=== PATIENT | female | born 1945 | race Caucasian/White ===

== ENCOUNTER 2022-09-09 18:24 | Emergency (ER) | payer MEDICARE, SELFPAY ==
[2022-09-09 18:34] VITALS: BP 169/90; PULSE 62; RESP 14; TEMP 36.4; O2SAT 99; BMI 20.5
[2022-09-09 18:43] LABS: Glucose Point of Care 86 mg/dL (70-110)
--- NOTE | 2022-09-09 18:45 | ECG_ITS ---
[facility] Test Date: 2022-09-09 Pat Name: Sherice Hassan Department: Room: Gender: Female [employer]er: : 1945 Requested By: Andrea Mendosa Order Number: [id number] Reading MD: CATHLEEN LUDWIG Measurements Intervals [place] Rate: 59 P: 18 NH: 143 QRS: -54 QRSD: 97 T: 47 QT: 429 QTc: 427 Interpretive Statements SINUS BRADYCARDIA LEFT AXIS DEVIATION [QRS AXIS < -30] LOW QRS VOLTAGE IN PRECORDIAL LEADS [QRS DEFLECTION < 1.0 mV IN CHEST LEADS] PATTERN CONSISTENT WITH PULMONARY DISEASE No previous ECG available for comparison Electronically Signed On 09-10-2022 23:37:23 CDT by CATHLEEN LUDWIG [id number]
--- NOTE | 2022-09-09 18:45 | CTR_ITS ---
PROCEDURE INFORMATION: Exam: CT Head Without Contrast Exam date and time: 09/09/2022 7:06 PM Age: 76 years old Clinical indication: Visual disturbance; Additional info: Left eye blurred vision TECHNIQUE: Imaging protocol: Computed tomography of the head without contrast. Radiation optimization: All CT scans at this facility use at least one of these dose optimization techniques: automated exposure control; mA and/or kV adjustment per patient size (includes targeted exams where dose is matched to clinical indication); or iterative reconstruction. REPORTING DATA: Count of CT and Cardiac NM exams in prior 12 months: This patient has received 0 known CTs and 0 known cardiac nuclear medicine studies in the 12 months prior to the current study. COMPARISON: No relevant prior studies available. RADIATION DOSE METRICS: Total DLP (mGy-cm): 1014.98 FINDINGS: Brain: Normal. No hemorrhage. Unremarkable white matter. No mass effect. Cerebral ventricles: No ventriculomegaly. Paranasal sinuses: Visualized sinuses are unremarkable. No fluid levels. Mastoid air cells: Visualized mastoid air cells are well aerated. Bones/joints: Unremarkable. No acute fracture. Soft tissues: Unremarkable. CT/CT head wo con* [id number] IMPRESSION: No acute intracranial abnormality.
--- NOTE | 2022-09-09 18:49 | PC.NURSE ---
REPORT GIVEN TO MANUELA RN ASSUMED CARE.
[2022-09-09 18:54] LABS: Basophils # 0.1 10^3/uL (0.0-0.1); Basophils % 0.9 %; Eosinophils # 0.2 10^3/uL (0.0-0.8); Eosinophils % 2.7 %; Hematocrit 43.6 % (37.0-47.0); Hemoglobin 13.9 g/dL (11.5-15.3); Lymphocytes # 1.8 10^3/uL (0.8-4.8); Lymphocytes % 27.5 %; Mean Corpuscular HGB Conc 31.9 g/dL (30.0-36.0); Mean Corpuscular Hemoglobin 30.2 pg (28.0-34.0); Mean Corpuscular Volume 94.6 fl (81-99); Mean Platelet Volume 9.6 fL (7.4-10.4); Monocytes # 0.6 10^3/uL (0.2-0.9); Monocytes % 8.9 %; Neutrophils # 3.95 10^3/uL (1.8-7.7); Neutrophils % 59.8 %; Nucleated Red Blood Cells % 0 %; Platelet Count 231 10^3/cmm (130-400); Red Blood Count 4.61 10^6/uL (4.1-5.3); Red Cell Distribution Width 12.8 % (12.1-15.1); White Blood Count 6.6 10^3/uL (4.0-10.0)
[2022-09-09 19:05] LABS: INR 0.95 (0.8-1.2)
[2022-09-09 19:06] LABS: Partial Thromboplastin Time 29.4 SECONDS (23.9-36.7)
[2022-09-09 19:11] LABS: Alanine Aminotransferase 10 U/L (0-33); Albumin Level 4.4 g/dL (3.5-5.2); Alkaline Phosphatase 66 U/L (35-105); Anion Gap 12.7 (5-19); Aspartate Amino Transferase 17 U/L (0-32); Blood Urea Nitrogen 13 mg/dL (8-23); Calcium 9.2 mg/dL (8.5-10.5); Carbon Dioxide 28 mmol/L (22-29); Chloride 104 mmol/L (98-107); Creatinine Clr Calc Pharmacy 52.3651; Globulin 3.1 g/dL (1.3-4.6); Glucose 92 mg/dL (65-115); Osmolality Calculated 292 mOsm/kg (285-295); Potassium 3.7 mmol/L (3.5-5.1); Sodium 141 mmol/L (136-145); Total Bilirubin 0.3 mg/dL (0.15-1.2); Total Protein 7.5 g/dL (6.6-8.7)
[2022-09-09 20:20] VITALS: BP 131/75; PULSE 60; RESP 16; O2SAT 99
[2022-09-09 20:28] VITALS: BP 136/84; PULSE 56; RESP 16; O2SAT 99
--- NOTE | 2022-09-09 21:58 | W.ED.NEUROSD ---
HPI - Neuro Symptoms/Deficit General: Chief Complaint: Neuro Symptoms/Deficit Stated Complaint: blurred vision Time Seen by Provider: 09/09/22 18:36 History of Present Illness: 76-year-old female with no significant past medical history other than migraines infrequently. She reports a graying out of her vision, essentially of her left eye for about 10 to 15 minutes earlier in the evening. The symptoms resolved spontaneously, and she is asymptomatic. There was no eye pain. Her right eye was fine during the episode. This was only her left eye, and it was a graying out of her entire visual field. No speech or language problems, no weakness, no paresthesias. No dizziness. She has had symptoms of diplopia that is transient prior to this in the more distant past, but not recently. She has not had these specific symptoms to the left eye before. Location: other History of same: No Severity: moderate Quality: other Relieving factors: time Exacerbating factors: none Associated symptoms: Deny chest pain, cough, diaphoresis, fevers/chills, headache(s), nausea, syncope, tingling, vertigo, vomiting or weakness Review of Systems Const: Denies: diaphoresis Eyes: Reports: change in vision and blind spots (Now resolved) Card: Denies: chest pain or syncope GI: Denies: nausea or vomiting Neuro: Denies: headache(s) or vertigo NIH stroke score NIHSS: Level Of Consciousness - 1a: 0 Level Of Consciousness Questions - 1b: Both Correct Level Of Consciousness Commands - 1c: Both Correct Best Gaze - 2: Normal Visual Kim - 3: No Visual Loss Facial Palsy - 4: Normal Motor Arm Right - 5: No Drift Motor Arm Left - 5: No Drift Motor Leg Right - 6: No Drift Motor Leg Left - 6: No Drift Limb Ataxia - 7: Absent Sensory - 8: Normal Best Language - 9: No Aphasia Dysarthia - 10: Normal Extinction And Inattention - 11: 0 Score: Total Score: 0 Physical Exam Const: COMMON NORMALS: no acute distress GENERAL APPEARANCE: cooperative; not ill appearing and not frail appearing HENMT: COMMON NORMALS: normocephalic, atraumatic and Normal external nose present HEAD & SCALP: normocephalic and atraumatic FACE & SINUS: normal facial exam and face symmetric NOSE: Normal external nose present Eye: COMMON NORMALS: Equal, round and reactive pupils present, EOMs intact bilaterally, conjunctivae normal and no papilledema GENERAL EYE: appearance normal, both eyes and all related structures and normal light reflex VISUAL ACUITY: Yes acuity normal VISUAL KIM: No peripheral vision loss and No central vision loss ALIGNMENT: Yes alignment normal EYELID: eyelids normal CONJUNCTIVA: Yes conjunctivae normal PUPIL: Yes Equal, round and reactive pupils present DIRECT OPHTHALMOSCOPY: Yes normal light reflex, Yes no papilledema, Yes photophobia and No retinal abnormality Neck/C-Spine: GENERAL: Yes trachea midline Chest: CHEST: Yes Symmetrical chest wall rise Resp: COMMON NORMALS: normal respiratory effort, No retractions, No use of accessory muscles and clear to auscultation bilaterally AUSCULTATION: clear to auscultation bilaterally Cardio: COMMON NORMALS: regular rate and regular rhythm RATE: regular rate RHYTHM: regular rhythm GI: COMMON NORMALS: Normal to inspection, nondistended, normoactive bowel sounds present Extremity: COMMON NORMALS: no pedal edema Neuro: MOUNA COMA SCALE: document GCS findings Mouna coma scale eye opening: Spontaneous Aiken coma scale verbal response: Orientated Mouna coma scale motor response: Obey commands Mouna coma scale total score: 15 SENSORY EXAM: Yes extremities (intact) Psych: COMMON NORMALS: speech normal SPEECH: Yes normal speech Skin: COMMON NORMALS: no rashes or lesions noted GENERAL SKIN EXAM: no rashes or lesions noted Course Vital Signs: Vital signs: Vital Signs Temperature 97.5 F L 09/09/22 18:34 Pulse Rate 56 L 09/09/22 20:28 Respiratory Rate 16 09/09/22 20:28 Blood Pressure 136/84 09/09/22 20:28 Pulse Oximetry 99 09/09/22 20:28 Oxygen Delivery Me thod 09/09/22 20:20 MDM - Neuro Symptoms/Deficit Medical Decision Making Symptoms are resolved. Her neurological exam is normal. I do not see significant findings on funduscopic exam. Laboratory is not remarkable. Head CT is negative. She will be allowed discharge with outpatient follow-up with ophthalmology. She notes return for return symptoms Lab Data 09/09/22 18:47 09/09/22 18:[address] 09/09/22 18:45 IMPRESSION: No acute intracranial abnormality. Laboratory Results WBC 6.6 10^3/uL (4.0-10.0) 09/09/22 18:47 RBC 4.61 10^6/uL (4.1-5.3) 09/09/22 18:47 Hgb 13.9 g/dL (11.5-15.3) 09/09/22 18:47 Hct 43.6 % (37.0-47.0) 09/09/22 18:47 MCV 94.6 fl (81-99) 09/09/22 18:47 MCH 30.2 pg (28.0-34.0) 09/09/22 18:47 MCHC 31.9 g/dL (30.0-36.0) 09/09/22 18:47 RDW 12.8 % (12.1-15.1) 09/09/22 18:47 Plt Count 231 10^3/cmm (130-400) 09/09/22 18:47 MPV 9.6 fL (7.4-10.4) 09/09/22 18:47 Neut % (Auto) 59.8 % 09/09/22 18:47 Lymph % (Auto) 27.5 % 09/09/22 18:47 [place] % (Auto) 8.9 % 09/09/22 18:47 Eos % (Auto) 2.7 % 09/09/22 18:47 Baso % (Auto) 0.9 % 09/09/22 18:47 Neut # (Auto) 3.95 10^3/uL (1.8-7.7) 09/09/22 18:47 Lymph # (Auto) 1.8 10^3/uL (0.8-4.8) 09/09/22 18:47 [place] # (Auto) 0.6 10^3/uL (0.2-0.9) 09/09/22 18:47 Eos # (Auto) 0.2 10^3/uL (0.0-0.8) 09/09/22 18:47 Baso # (Auto) 0.1 10^3/uL (0.0-0.1) 09/09/22 18:47 Nucleated RBC % (auto) 0 % 09/09/22 18:47 Nucleated RBCs # 0.0 /100WBC 09/09/22 18:47 PT 13.00 SECONDS (12.1-14.9) 09/09/22 18:47 INR 0.95 (0.8-1.2) 09/09/22 18:47 APTT 29.4 SECONDS (23.9-36.7) 09/09/22 18:47 Sodium 141 mmol/L (136-145) 09/09/22 18:47 Potassium 3.7 mmol/L (3.5-5.1) 09/09/22 18:47 Chloride 104 mmol/L (98-107) 09/09/22 18:47 Carbon Dioxide 28 mmol/L (22-29) 09/09/22 18:47 Anion Gap 12.7 (5-19) 09/09/22 18:47 BUN 13 mg/dL (8-23) 09/09/22 18:47 Creatinine 0.7 mg/dL (0.5-0.9) 09/09/22 18:47 GFR Calculation Not Reportable 09/09/22 18:47 Glucose 92 mg/dL (65-115) 09/09/22 18:47 POC Glucose 86 mg/dL (70-110) 09/09/22 18:34 Calculated Osmolality 292 mOsm/kg (285-295) 09/09/22 18:47 Calcium 9.2 mg/dL (8.5-10.5) 09/09/22 18:47 Total Bilirubin 0.3 mg/dL (0.15-1.2) 09/09/22 18:47 AST 17 U/L (0-32) 09/09/22 18:47 ALT 10 U/L (0-33) 09/09/22 18:47 Alkaline Phosphatase 66 U/L (35-105) 09/09/22 18:47 Total Protein 7.5 g/dL (6.6-8.7) 09/09/22 18:47 Albumin 4.4 g/dL (3.5-5.2) 09/09/22 18:47 Globulin 3.1 g/dL (1.3-4.6) 09/09/22 18:47 Discharge Plan Discharge Patient Disposition: Home Clinical Impression: [place] involving central area in visual field Condition: Stable Discharge Orders: Discharge ED (Routine); Ordered 09/09/22 Ordered By: Andrea Morales Referrals: Darshan Palmer [Physician] - 1-3 days Activity Restrictions/Additional Instructions: Called ophthalmology clinic Monday morning for a follow-up appointment. Return to the emergency department for more permanent loss of vision, any other concerning symptoms such as language or speech problems, weakness, etc. Coding Level of Care Code ED Network Contractor for Arlen Smith
--- NOTE | 2022-09-13 14:10 | DCPLANNER ---
vending manager called patient due to no primary care physician - patient stated that she sees someone in [place] - patient declines at this time.
== END 2022-09-09 20:20 | disposition home or self-care (01) ==
PROVIDERS: Emergency Provider Emergency Medicine
DX: H53.412 Scotoma involving central area, left eye (principal)
CPT/HCPCS: 36416; 70450; 80053; 82962; 85025; 85610; 85730; 93005; 99285